=== PATIENT | male | born 1950 | race Caucasian/White ===

== ENCOUNTER 2017-08-16 15:58 | Inpatient (IN) ==
--- NOTE | 2017-08-16 16:32 | Emergency Department Note ---
Disposition Clinical Impression: Acalculous cholecystitis Disposition: Admitted As Inpatient Condition: Good Time of Disposition: 18:02 Abdominal Pain HPI - General Chief Complaint: ED Abdominal Pain Stated Complaint: admit for gallbladder sx Time Seen by Provider: 08/16/17 16:03 Source: patient Mode of arrival: ambulatory Limitations: no limitations Nursing Notes Reviewed: Yes Vital Signs Reviewed: Yes - History of Present Illness HPI Narrative: 67-year-old male history of atrial fibrillation on Eliquis presents to the emergency department as a transfer via EMS from the [place] for concern of bladder infection. Patient states he was going in for fasting labs he told them he has been experiencing abdominal pain for past 5 days. Sharp constant pain mostly in the right lower quadrant that radiates up to the right upper quadrant. Worse after certain meals in particular pizza and fried chicken. Denies any nausea or vomiting. States he has felt warm. Reports of some pain to the right shoulder, denies any injury. Denies chest pain or shortness of breath. Denies any urinary symptoms. Patient was sent here for possible surgery as the [facility] does not have that ability there. Review of his labs shows a total bilirubin 1.6 direct bilirubin 0.8, AST 41 ALT 34, creatinine .88 WBC 9.7 hemoglobin stable 13.[address] scan of the abdomen and pelvis shows a distended gallbladder with wall thickening and pericholecystectomy inflammatory changes consistent with acute cholecystitis, no evidence of radio dents gallstones however gallbladder is distended, free intraperitoneal fluid likely related to the gallbladder inflammation, tip of the appendix is mildly dilated but appendicitis cannot be excluded based on this appearance. Pt Subjective Complaint: abdominal pain - Related Data Home Medications Medication Instructions Recorded Confirmed Apixaban [Eliquis] 5 mg PO BID 08/16/17 08/16/17 Atorvastatin Calcium [Lipitor] 20 mg PO HS 08/16/17 08/16/17 Lisinopril [Zestril] 10 mg PO DAILY 08/16/17 08/16/17 Metoprolol [Lopressor] 75 mg PO BID 08/16/17 08/16/17 Multivitamin [One Daily 1 tab PO DAILY 08/16/17 08/16/17 Multivitamin] Sildenafil Citrate [Viagra] 100 mg PO DAILY 08/16/17 08/16/17 Allergies Allergy/AdvReac Type Severity Reaction Status Date / Time No Known Allergies Allergy Verified 08/16/17 18:00 All systems ED: reviewed and negative except as stated. Review of Systems: As Per HPI Constitutional: Reports: fever (Tactile). Denies: chills Cardiovascular: Denies: chest pain Respiratory: Denies: cough, dyspnea Gastrointestinal: Reports: abdominal pain. Denies: nausea, vomiting, diarrhea, melena, hematochezia Genitourinary: Denies: urgency, dysuria, hematuria Musculoskeletal: Denies: back pain, neck pain Integumentary: Denies: rash, abrasion Abdominal Pain PMH - Past Medical History Medical history: Reports: no medical history Physical Exam - General Limitations: no limitations General appearance: alert, in no apparent distress - Head Head exam: atraumatic, normocephalic, normal inspection - Eye Eye exam: Present: normal appearance, PERRL, EOMI. Absent: scleral icterus - ENT ENT exam: normal exam, normal oropharynx, mucous membranes moist - Neck Neck exam: Present: normal inspection, full ROM, trachea midline - Chest Chest inspection: Present: normal inspection, symmetric chest wall rise. Absent : tenderness - Respiratory Respiratory exam: Present: normal lung sounds bilaterally. Absent: respiratory distress, wheezes - Cardiovascular Cardiovascular exam: Present: regular rate, normal rhythm, normal heart sounds - Abdominal Exam Abdominal exam: Present: soft, tenderness, normal bowel sounds. Absent: distention, guarding, rebound, rigidity, Barrios's sign, Rovsing's sign Abdominal tenderness: Present: RUQ, RLQ - Extremities Exam Extremities exam: Present: normal inspection, full ROM, normal capillary refill. Absent: tenderness, pedal edema, calf tenderness - Back Exam Back exam: Present: normal inspection, full ROM. Absent: tenderness, CVA tenderness (R), CVA tenderness (L) - Neurological Exam Neurological exam: Present: alert, oriented X3 - Psychiatric Psychiatric exam: Present: normal affect, normal mood - Skin Skin exam: Present: warm, dry, intact, normal color. Absent: rash, cyanosis, diaphoresis Course Course Narrative: Patient presents with concern of acute cholecystitis [facility]. Labs and images performed there. The medical record was reviewed by myself. Findings are consistent with it. On examination patient is tender in the right lower right upper quadrant. Negative Barrios sign. His abdomen is soft. Pain appears well- controlled at this time. Will consult surgery for possible intervention. Patients in agreement with this plan. - Consultations Consultation #1: Spoke to Dr. Anderson surgeon computer salesperson retail recommends ultrasound they will come to evaluate the patient. Time: 16:51 Consultation #2: Patient is awaiting ultrasound of the gallbladder. Because he is on Eliquis for his atrial fibrillation, patient will be admitted to the hospital service for possible surgery and 48 hours. Spoke with on-call hospitalist ryland Sheridan to admit for acute cholecystitis. No further orders at this time Time: 17:56 Vital Signs Temperature 98.1 F 08/16/17 16:36 Pulse Rate 102 08/16/17 16:36 Respiratory Rate 18 08/16/17 16:36 Blood Pressure 155/81 08/16/17 16:36 O2 Sat by Pulse Oximetry 98 08/16/17 16:36 Temperature 99.9 F H 08/16/17 19:56 Pulse Rate 106 08/16/17 19:56 Respiratory Rate 14 08/16/17 19:56 Blood Pressure 176/98 08/16/17 19:56 O2 Sat by Pulse Oximetry 96 08/16/17 19:56 Oxygen Delivery Oxygen Delivery Room Air Abdominal Pain - MDM Narrative Medical decision making narrative: Patient was discussed with my attending physician who agrees with ED management and final disposition. They independently evaluated the patient. Please refer to their attestation to this encounter for additional information. This note was generated by [employer] voice recognition software and as a result grammatical or spelling errors may occur using this program. - Medical Records Medical records reviewed: Yes I reviewed the patient's medical records. Review of his labs shows a total bilirubin 1.6 direct bilirubin 0.8, AST 41 ALT 34, creatinine .88 WBC 9.7 hemoglobin stable 13.7 - Lab Data Lab results reviewed: Yes I reviewed the patient's lab results. - Radiology Data Radiology results reviewed: Yes I reviewed the patient's radiology results. Review of the CT scan of the abdomen and pelvis shows a distended gallbladder with wall thickening and pericholecystectomy inflammatory changes consistent with acute cholecystitis, no evidence of radio dents gallstones however gallbladder is distended, free intraperitoneal fluid likely related to the gallbladder inflammation, tip of the appendix is mildly dilated but appendicitis cannot be excluded based on this appearance. Gallbladder Ultrasound 08/16/17 16:51 IMPRESSION: Sludge filled gallbladder with thickened gallbladder wall. No sonographic Barrios sign or shadowing stones are seen. The findings are concerning for acalculous cholecystitis. If further imaging is warranted a HIDA scan could be pursued. D/ / Parminder Almanza MD / Parminder Almanza MD Interpreting Provider: Parminder Almanza MD Attestation Statement - Attestation Attestation: I, Luis Fernando Pride, examined this patient and my medical decision-making was reviewed with the DIRECTOR OF SCIENTIFIC RESEARCH/PA/Advanced Practice Nurse/Resident Physician. I agree with the documented findings, disposition and treatment plan as described except to the extent set forth below. 67-year-old male [facility] possible acute [facility]ole[facility]stit[facility]. Patient has CT which showed inflammation surrounding the gallbladder as well as the distal tip of the appendix. Patient states pain is in the right upper quadrant and radiates to his right shoulder blade. Worse with food intake. Patient had elevation of his bilirubin. Resident spoke with the surgeon who recommended admission to the hospitalist. Dr. Anderson reported to patient that gallbladder would likely be taken out on Saturday secondary to patient being Eliquis. Patient comfortable with this plan of action.
--- NOTE | 2017-08-16 17:24 | General Surgery Consult Note ---
Date of Encounter: 08/16/17 Time of Encounter: 17:20 Assessment and Plan (1) Acute cholecystitis Current Visit: Yes Status: Acute 67M with acute cholecystitis; CLD, non sweetened, non carbonated IVF hold eliquis, okay for dvt prophylaxis per primary team IV abx OR on 08/18 History of Present Illness Consult date: 08/16/17 Reason for consult: abdominal pain History of present illness: 67M h/o atrial fibrillation currently on eliquis (last dose was this morning), obesity who presents with 5 days of worsening abdominal pain localized to the Right side with radiation to right shoulder. No associated fevers, chills, but the patient does have PO intolerance. He states that his symptoms are worsened with chicken, pizza, and other fatty meals. Per his family he has had numerous episodes like this before, but this is the worst of it. He was transferred from the [place] for surgical evaluation. Of note, he did have a CT scan which demonstrated pericholecystic fluid as well as thickening of the gallbladder wall. His labs from the [place] show a total bilirubin 1.6. Past Med Surg Social Fam HX - Past Medical History Medical history: atrial fibrillation, cancer, hypertension Additional medical history: skin cancer Psychiatric history: no psych history - Past Surgical History Additional surgical history: skin cancer removal, hemorrhoids - Social History Smoking Status: Never smoker Smokeless Tobacco Status: No Alcohol use: none Drug use: none - Additional Family History Additional family history: non contributory Medications and Allergies 3 Allergy/AdvReac Type Severity Reaction Status Date / Time No Known Allergies Allergy Verified 08/16/17 16:49 Review of Systems All systems PM: The remainder of the systems were reviewed and are negative General Surgery Exam Initial Vital Signs Temp Pulse Resp BP Pulse Ox 98.1 F 102 18 155/81 98 08/16/17 16:36 08/16/17 16:36 08/16/17 16:36 08/16/17 16:36 08/16/17 16:36 - General physical appearance no distress - Eyes other (no scleral icterus) - ENT normocephalic - Neck no lymphadectomy - Respiratory normal expansion, normal respiratory effort - Cardiovascular Cardiovascular exam: Present: RRR - Abdomen Abdomen general surgery: Present: soft, tender Abdominal Tenderness: Present: RUQ ((-) pineda's sign) - Integumentary Integumentary general surgery: Present: warm and dry, no abnormal pigmentation - Neurologic Present: CN 2-12 grossly intact - Musculoskeletal Present: normal posture - Psychiatric Psychiatric general surgery: Present: A&Ox3 Exam Initial Vital Signs Temp Pulse Resp BP Pulse Ox 98.1 F 102 18 155/81 98 08/16/17 16:36 08/16/17 16:36 08/16/17 16:36 08/16/17 16:36 08/16/17 16:36 Results - Labs All other labs normal. Consult Discharge Plan - Plan [facility]errals[facility] [Primary Care Provider[facility] -
[2017-08-16] MEDS ORDERED: *HR* FentaNYL (PF) 100 MCG/2 ML VIAL IVP ONE (17:59)
[2017-08-16] MEDS ORDERED: Naloxone 0.4 MG/ML INJ IVP PRN (20:39)
--- NOTE | 2017-08-16 21:21 | Internal Med History&Physical ---
Date of Encounter: 08/16/17 Time of Encounter: 20:00 Internal Medicine - H&P: HPI Chief complaint: Abdominal pain Admitted From: Home Plans for Post Hospital Care: Home History of present illness: Mr. Crespo is a 67 year old male presented to the [facility] for abdominal pain. Past medical history is significant for A. fib on Eliquis, hypertension. Patient has right side abdominal pain for about 5 days. The pain is mainly on right upper quadrant. Pain getting worse after eating. Patient did feel chills and subjective fever. Patient has nausea but no vomiting. Patient denies diarrhea or urination symptoms. Patient denies chest pain but complained of some chest discomfort. Patient denies shortness of breath. CT abdomen shows acute cholecystitis, cannot rule out appendicitis. Patient was transferred to our hospital for surgical consult. Surgery saw patient already. Plan for surgery but the need to hold eliquis for 48 hours. Patient was admitted for further close monitoring. Past Med Surg Social Fam HX - Past Medical History Medical history: no medical history Additional medical history: skin cancer Psychiatric history: no psych history - Past Surgical History Additional surgical history: skin cancer removal, hemorrhoids - Social History Smoking Status: Never smoker Smokeless Tobacco Status: No Alcohol use: none Drug use: none - Family History Mother History Unknown: Yes Internal Medicine - H&P: Meds Apixaban [Eliquis] 5 mg PO BID 08/16/17 [History] Atorvastatin Calcium [Lipitor] 20 mg PO HS 08/16/17 [History] Lisinopril [Zestril] 10 mg PO DAILY 08/16/17 [History] Metoprolol [Lopressor] 75 mg PO BID 08/16/17 [History] Multivitamin [One Daily Multivitamin] 1 tab PO DAILY 08/16/17 [History] Sildenafil Citrate [Viagra] 100 mg PO DAILY 08/16/17 [History] 3 Allergy/AdvReac Type Severity Reaction Status Date / Time No Known Allergies Allergy Verified 08/16/17 18:00 All Systems PM: A 10-system review of systems was performed and is negative for pertinent findings except as documented above in the HPI. - Constitutional Vitals: Temp Pulse Resp BP Pulse Ox 99.9 F H 106 14 176/98 96 08/16/17 19:56 08/16/17 19:56 08/16/17 19:56 08/16/17 19:56 08/16/17 19:56 General appearance: Present: A&O X 3, no acute distress, answers questions appropriately - Head Head exam: Present: atraumatic, normocephalic - Eye Eye exam: Present: PERRL, conjuntiva pink, sclera anicteric Pupils: Present: PERRL - Neck Neck exam general surgery: Present: supple, trachea midline. Absent: lymphadenopathy - Respiratory Respiratory exam: Present: CTAB. Absent: accessory muscle use, rales, rhonchi, wheezes - Cardiovascular Cardiovascular exam: Present: RRR, +S1, +S2. Absent: diastolic murmur, gallop, rubs, systolic murmur - GI/Abdominal GI/Abdominal exam: Present: normal bowel sounds, soft, tenderness (Mild RUQ pain without or guarding or rebound. Morphis sign questionable positive), no peritoneal signs. Absent: distended - Extremities Exam Extremities exam: Present: warm, radial pulses palpable and symmetrical. Absent : calf tenderness, cyanotic, pedal edema - Neurological Exam Neurological exam: Present: CN II-XII intact, oriented X3, no focal deficits. Absent: pronater drift, facial droop, speech deficit - Skin Skin exam: Present: dry, intact - Assessment and plan (1) Acalculous cholecystitis Current Visit: Yes Status: Acute Assessment and plan: Per surgical consult, plan for surgery on Saturday. - Place patient on clear liquid diet, IV fluid - Cipro and Flagyl IV - Symptomatic control - Closely monitor patient (2) Hypertension Current Visit: Yes Status: Acute Assessment and plan: Continue home medications Qualifiers: Hypertension type: essential hypertension Qualified Code(s): I10 - Essential (primary) hypertension (3) Chest discomfort Current Visit: Yes Status: Acute Assessment and plan: Minimal symptoms. However, consider patient's age and history of hypertension and A. fib. We will check his EKG. - Continuous cardiac monitoring - Track 3 sets of troponin (4) A-fib Current Visit: Yes Status: Acute Assessment and plan: Continue beta deborah for rate control. Hold Eliquis at this point to prepare surgery Qualifiers: Atrial fibrillation type: chronic Qualified Code(s): I48.2 - Chronic atrial fibrillation (5) DVT prophylaxis Current Visit: Yes Status: Acute Assessment and plan: Heparin subcutaneously. EPCDs - Time Spent With Patient Total time spent is greater than 50% in coordination of care (as documented) at patient's floor/unit and/or counseling patient:
[2017-08-16] MEDS: D5% in 0.45% NACL 1,000 ML IVC SCH (22:12)
[2017-08-16] MEDS: Acetaminophen 325 MG TABLET PO PRN (22:24)
[2017-08-16] MEDS: MetroNIDAZOLE 500 MG/100 ML 500 MG/100 ML BAG IVPB SCH (23:18)
[2017-08-17 03:42] LABS: Basophils % 0.1 %; Eosinophils # 0.1 K/mcL (0.0-0.6); Eosinophils % 0.6 %; Hematocrit 39.4 % (37.5-50.1); Hemoglobin 13.2 g/dL (12.9-16.9); Immature Granulocytes % 0.4 % (0-4); Lymphocytes # 1.1 K/mcL (0.6-4.6); Lymphocytes % 11.8 %; Mean Corpuscular HGB Conc 33.5 g/dL (31.6-35.5); Mean Corpuscular Hemoglobin 28.4 pg (28.0-33.3); Mean Corpuscular Volume 84.7 fL (83.0-100.0); Mean Platelet Volume 9.9 fL (9.4-12.4); Monocytes % 10.8 %; Neutrophils # 6.8 K/mcL (1.6-8.9); Platelet Count 218 K/mcL (140-400); Red Blood Count 4.65 M/mcL (4.19-5.50); Red Cell Distribution Width 15.1 % (11.5-14.5); Segmented Neutrophils % 76.3 %
[2017-08-17 04:07] LABS: Alanine Aminotransferase 98 Units/L (7-52); Albumin 3.4 g/dL (3.5-5.7); Albumin/Globulin Ratio 1.3 (1.1-2.2); Alkaline Phosphatase 139 Units/L (34-104); Aspartate Amino Transferase 122 Units/L (13-39); BUN/Creatinine Ratio 16 (6-26); Bilirubin,Total 4.1 mg/dL (0.3-1.0); Blood Urea Nitrogen 14 mg/dL (8-23); Calcium 8.7 mg/dL (8.6-10.3); Carbon Dioxide 19 mEq/L (23-29); Chloride 104 mEq/L (98-107); Globulin 2.6 g/dL (2.4-3.5); Glucose 136 mg/dL (70-105); Osmolality,Calculated 285 (280-300); Potassium 3.4 mEq/L (3.5-5.1); Sodium 136 mEq/L (136-145); eGFR For African Americans > 60 (> 60); eGFR For Non-African Americans > 60 (> 60)
[2017-08-17] MEDS: *HR* Heparin 5,000 UNIT/ML VIAL SQ SCH ×2 (05:08→18:41)
[2017-08-17 10:10] LABS: Bilirubin,Direct 3.4 mg/dL (0.0-0.2)
[2017-08-17] MEDS: MetroNIDAZOLE 500 MG/100 ML 500 MG/100 ML BAG IVPB SCH ×2 (10:51→17:06)
[2017-08-17] MEDS: Multivit/Ca/Min/Fe/FA 1 TAB TABLET PO SCH (10:52)
[2017-08-17] MEDS: D5% in 0.45% NACL 1,000 ML IVC SCH (15:02)
--- NOTE | 2017-08-17 17:09 | Internal Med Progress Note ---
Date of Encounter: 08/17/17 Time of Encounter: 09:40 - Assessment and plan (1) Acalculous cholecystitis Current Visit: Yes Status: Acute Assessment and plan: Surgery on Saturday. Stop Eliquis prior to surgery. Continue clear liquid diet, IV fluids. Continue Cipro and Flagyl IV Continue pain management Patient had an MR today shows the findings are most compatible with acute cholecystitis, there is cholelithiasis and T1 hyperintense material within the gallbladder either sludge or contrast material. There is no biliary duct dilation or choledocholithiasis. Gallbladder Ultrasound 08/16/17 16:51 IMPRESSION: Sludge filled gallbladder with thickening of the gallbladder wall. No sonographic Barrios sign or shadowing stones are seen. The findings are concerning for acalculous cholecystitis. If further imaging is warranted, a HIDA scan could be pursued. D/ / 08/16/2017 19:17:07 Parminder Almanza MD / myah Interpreting Provider: Parminder Almanza MD Abdomen MRI 08/17/17 09:24 IMPRESSION: 1. Findings are most compatible with acute cholecystitis. There is cholelithiasis and T1 hyperintense material within the gallbladder either sludge or contrast material. 2. No biliary duct dilation or choledocholithiasis. The findings were sent to the Radiology Results Communication [facility] at 10:45 am on 08/17/2017to be communicated to a licensed caregiver. D/ / 08/17/2017 12:12:27 Autumn Bae MD / Mesha Leal Interpreting Provider: Autumn Bae MD (2) Hypertension Current Visit: Yes Status: Acute Assessment and plan: Continue home medications. Stable and well controlled. Qualifiers: Hypertension type: essential hypertension Qualified Code(s): I10 - Essential (primary) hypertension (3) Chest discomfort Current Visit: Yes Status: Acute Assessment and plan: Patient denies chest pain, shortness of breath, diaphoresis, nausea or vomiting this morning during exam. Continue telemetry Troponins negative 3. Continue to monitor. EKG this morning showed A. fib. (4) A-fib Current Visit: Yes Status: Chronic Assessment and plan: Continue beta deborah and Eliquis. Continue telemetry. Qualifiers: Atrial fibrillation type: chronic Qualified Code(s): I48.2 - Chronic atrial fibrillation (5) DVT prophylaxis Current Visit: Yes Status: Acute Assessment and plan: Heparin subcutaneously. EPCDs - Time Spent With Patient Total time spent is greater than 50% in coordination of care (as documented) at patient's floor/unit and/or counseling patient: less than 15 minutes - Subjective Interval history: Patient was seen and assessed at bedside at 9:40 AM. He denies any abdominal pain. He states is well controlled. When I saw him he was on his way to [facility]. He denied any needs. He denies nausea or vomiting, no chest pain or shortness of breath. He does have +1 nonpitting bilateral lower extremity that he says is normal since he was diagnosed with A. fib recently. - Constitutional Vitals: Temp Pulse Resp BP Pulse Ox 98.8 F 70 16 113/72 96 08/17/17 15:47 08/17/17 15:47 08/17/17 15:47 08/17/17 15:47 08/17/17 15:47 General appearance: Present: cooperative, A&O X 3, pleasant, no acute distress, answers questions appropriately - Head Head exam: Present: atraumatic, normal inspection, normocephalic - Eye Eye exam: Present: normal appearance, conjuntiva pink, sclera anicteric - Neck Neck exam general surgery: Present: supple, trachea midline. Absent: lymphadenopathy, tenderness - Respiratory Respiratory exam: Present: CTAB. Absent: accessory muscle use, chest wall tenderness, rales, rhonchi, wheezes - Cardiovascular Cardiovascular exam: Present: RRR, +S1, +S2. Absent: diastolic murmur, gallop, rubs, systolic murmur - GI/Abdominal GI/Abdominal exam: Present: normal bowel sounds, soft. Absent: distended, hepatomegaly, tenderness - Extremities Exam Extremities exam: Present: normal capillary refill, normal inspection, warm, radial pulses palpable and symmetrical. Absent: calf tenderness, cyanotic, pedal edema, tenderness - Neurological Exam Neurological exam: Present: alert, oriented X3, no focal deficits. Absent: facial droop, speech deficit - Skin Skin exam: Present: dry, intact, normal color, warm. Absent: rash Internal Medicine: Result - Labs CBC & Chem 7: 08/17/17 02:32 08/17/17 02:32 Labs: Short CBC 08/17/17 Range/Units 02:32 WBC 9.0 (4.3-11.1) K/mcL Hgb 13.2 (12.9-16.9) g/dL Hct 39.4 (37.5-50.1) % Plt Count 218 (140-400) K/mcL Neutrophils # 6.8 (1.6-8.9) K/mcL BMP 08/17/17 02:32 Sodium 136 Potassium 3.4 L Chloride 104 Carbon Dioxide 19 L BUN 14 Creatinine 0.85 Glucose 136 H Calcium 8.7 Cardiac Enzymes 08/16/17 08/17/17 08/17/17 Range/Units 21:09 02:32 08:56 Troponin I < 0.03 < 0.03 < 0.03 (< 0.04) ng/mL Liver Function 08/17/17 Range/Units 02:32 Total Bilirubin 4.1 H (0.3-1.0) mg/dL Direct Bilirubin 3.4 H (0.0-0.2) mg/dL AST 122 H (13-39) Units/L ALT 98 H (7-52) Units/L Alkaline Phosphatase 139 H (34-104) Units/L Albumin 3.4 L (3.5-5.7) g/dL - Impressions Impressions Abdomen MRI 08/17/17 09:24 IMPRESSION: 1. Findings are most compatible with acute cholecystitis. There is cholelithiasis and T1 hyperintense material within the gallbladder either sludge or contrast material. 2. No biliary duct dilation or choledocholithiasis. The findings were sent to the Radiology Results Communication Center at 10:45 am on 08/17/2017to be communicated to a licensed caregiver. D/ /17/2017 12:12:27 Autumn Bae MD / Mesha Leal Interpreting Provider: Autumn Bae MD - VTE Documentation of Mechanical Device: Intermittent pneumatic compression device Consult Discharge Plan - Plan [facility]errals: [facility] [Primary Care Provider] -
--- NOTE | 2017-08-17 22:41 | General Surgery Progress Note ---
Date of Encounter: 08/17/17 Time of Encounter: 13:00 - Assessment and Plan (1) Acute cholecystitis Current Visit: Yes Status: Acute 67M with acute cholecystitis; MRCP confirming no choledocholithiasis; T bili elevated, lipase elevated; likely passed gallstone NPO at midnight; IVF agustin dorina in AM Subjective Patient reports: no new complaints Objective Vital Signs - Last 8 Hours Temp Pulse Resp BP Pulse Ox 08/17/17 21:44 96 08/17/17 19:05 97.7 F 87 15 134/87 96 08/17/17 15:47 98.8 F 70 16 113/72 96 Intake and Output 08/17/17 08/17/17 08/17/17 07:59 15:59 23:59 Intake Total 300 / 300 1580 / 1580 100 / 100 Balance 300 / 300 1580 / 1580 100 / 100 Intake: IV Fluids 300 / 300 1100 / 1100 100 / 100 D5% And 0.45% Nacl 1000 Ml Bag 1000 / 1000 1,000 ML @ 80 mls/hr IVC . [id number] [facility] Rx#:[id number] Cipro Premix 400 MG/200 ML 400 200 / 200 mg In 200 ml @ 200 mls/hr IVPB Q12HR [facility] Rx#:[id number] Flagyl Premix 500 MG/100 ML 500 100 / 100 100 / 100 100 / 100 mg In 100 ml @ 100 mls/hr IVPB Q8HR [facility] Rx#:[id number] Oral 480 / 480 Other: Meal clears # Voids 1 - General physical appearance no distress - Respiratory normal expansion, normal respiratory effort - Cardiovascular Cardiovascular exam: Present: RRR - Abdomen Abdomen: Present: soft, non tender - Neurologic CN 2-12 grossly intact - Psychiatric oriented to time, oriented to person, oriented to place - Labs 08/17/17 02:32 08/17/17 02:32 Diabetes panel 08/17/17 Range/Units 02:32 Sodium 136 (136-145) mEq/L Potassium 3.4 L (3.5-5.1) mEq/L Chloride 104 (98-107) mEq/L Carbon Dioxide 19 L (23-29) mEq/L BUN 14 (8-23) mg/dL Creatinine 0.85 (0.70-1.30) mg/dL Glucose 136 H (70-105) mg/dL Calcium 8.7 (8.6-10.3) mg/dL AST 122 H (13-39) Units/L ALT 98 H (7-52) Units/L Alkaline Phosphatase 139 H (34-104) Units/L Albumin 3.4 L (3.5-5.7) g/dL Calcium panel 08/17/17 Range/Units 02:32 Calcium 8.7 (8.6-10.3) mg/dL Albumin 3.4 L (3.5-5.7) g/dL Pituitary panel 08/17/17 Range/Units 02:32 Sodium 136 (136-145) mEq/L Potassium 3.4 L (3.5-5.1) mEq/L Chloride 104 (98-107) mEq/L Carbon Dioxide 19 L (23-29) mEq/L BUN 14 (8-23) mg/dL Creatinine 0.85 (0.70-1.30) mg/dL Glucose 136 H (70-105) mg/dL Calcium 8.7 (8.6-10.3) mg/dL Adrenal panel 08/17/17 Range/Units 02:32 Sodium 136 (136-145) mEq/L Potassium 3.4 L (3.5-5.1) mEq/L Chloride 104 (98-107) mEq/L Carbon Dioxide 19 L (23-29) mEq/L BUN 14 (8-23) mg/dL Creatinine 0.85 (0.70-1.30) mg/dL Glucose 136 H (70-105) mg/dL Calcium 8.7 (8.6-10.3) mg/dL Total Bilirubin 4.1 H (0.3-1.0) mg/dL AST 122 H (13-39) Units/L ALT 98 H (7-52) Units/L Alkaline Phosphatase 139 H (34-104) Units/L Albumin 3.4 L (3.5-5.7) g/dL - VTE Documentation of Mechanical Device: Intermittent pneumatic compression device Consult Discharge Plan - Plan [facility] Care Provider[facility] -
[2017-08-18] MEDS: MetroNIDAZOLE 500 MG/100 ML 500 MG/100 ML BAG IVPB SCH ×3 (00:06→15:22)
[2017-08-18] MEDS: 0.9 % Sodium Chloride 1,000 ML IVC SCH ×3 (00:07→23:38)
[2017-08-18] MEDS: *HR* Heparin 5,000 UNIT/ML VIAL SQ SCH ×2 (05:33→21:13)
[2017-08-18] MEDS: Multivit/Ca/Min/Fe/FA 1 TAB TABLET PO SCH (07:37)
[2017-08-18 08:02] LABS: Basophils % 0.2 %; Eosinophils # 0.2 K/mcL (0.0-0.6); Eosinophils % 2.9 %; Hematocrit 40.8 % (37.5-50.1); Hemoglobin 13.7 g/dL (12.9-16.9); Immature Granulocytes % 0.6 % (0-4); Lymphocytes # 1.2 K/mcL (0.6-4.6); Lymphocytes % 21.3 %; Mean Corpuscular HGB Conc 33.6 g/dL (31.6-35.5); Mean Corpuscular Hemoglobin 28.4 pg (28.0-33.3); Mean Corpuscular Volume 84.6 fL (83.0-100.0); Mean Platelet Volume 9.7 fL (9.4-12.4); Monocytes # 0.5 K/mcL (0.0-1.3); Monocytes % 9.4 %; Neutrophils # 3.6 K/mcL (1.6-8.9); Platelet Count 259 K/mcL (140-400); Red Blood Count 4.82 M/mcL (4.19-5.50); Red Cell Distribution Width 15.3 % (11.5-14.5); Segmented Neutrophils % 65.6 %
[2017-08-18 08:29] LABS: BUN/Creatinine Ratio 11 (6-26); Blood Urea Nitrogen 8 mg/dL (8-23); Calcium 8.6 mg/dL (8.6-10.3); Carbon Dioxide 27 mEq/L (23-29); Chloride 109 mEq/L (98-107); Glucose 124 mg/dL (70-105); Osmolality,Calculated 292 (280-300); Potassium 3.6 mEq/L (3.5-5.1); Sodium 141 mEq/L (136-145); eGFR For African Americans > 60 (> 60); eGFR For Non-African Americans > 60 (> 60)
[2017-08-18] MEDS ORDERED: *HR* Propofol 200 MG/20 ML VIAL IVP ONE (10:04)
[2017-08-18] MEDS ORDERED: Lidocaine -MPF 4% 5 ML AMPUL ONE (10:04)
[2017-08-18] MEDS ORDERED: *HR* Midazolam HCl 2 MG/2 ML VIAL ONE (10:04)
[2017-08-18] MEDS ORDERED: Ketorolac 30 MG/ML VIAL ONE (10:04)
[2017-08-18] MEDS ORDERED: Lidocaine -MPF 2% 2 ML VIAL ONE (10:04)
[2017-08-18] MEDS ORDERED: Dexamethasone 4 MG/ML VIAL ONE (10:04)
[2017-08-18] MEDS ORDERED: Ondansetron 4 MG/2 ML VIAL ONE (10:04)
[2017-08-18] MEDS ORDERED: *HR* FentaNYL (PF) 100 MCG/2 ML VIAL ONE (10:04)
[2017-08-18] MEDS ORDERED: Neostigmine Methylsulfate 3 MG/3 ML SYRINGE ONE (10:04)
[2017-08-18] MEDS ORDERED: *HR* Rocuronium Bromide 50 MG/5 ML VIAL ONE (10:04)
[2017-08-18] MEDS ORDERED: *HR* Succinylcholine 200 MG/10 ML VIAL IVP ONE (10:04)
[2017-08-18] MEDS: Acetaminophen 325 MG TABLET PO PRN (11:24)
--- NOTE | 2017-08-18 12:49 | Anesthesia Evaluation PreOp ---
Date of Encounter: 08/18/17 Time of Encounter: 12:47 - Past History Planned Operation: Robotic Laparoscopic Cholecystectomy Cardiac History: HTN, Hyperlipidemia, Arrhythmia (A-Fib) Pulmonary History: Denies Any Significant HX, Snore CONSTRUCTION CONSULTANT History: Denies Any Significant HX Other Medical History: Denies Any Significant HX Anesthesia History: No Prior Anesthetic Complications, Past Anesthesia Alcohol Use: rarely Drug use: none Medications and Allergies Apixaban [Eliquis] 5 mg PO BID 08/16/17 [History] Atorvastatin Calcium [Lipitor] 20 mg PO HS 08/16/17 [History] Lisinopril [Zestril] 10 mg PO DAILY 08/16/17 [History] Metoprolol [Lopressor] 75 mg PO BID 08/16/17 [History] Multivitamin [One Daily Multivitamin] 1 tab PO DAILY 08/16/17 [History] Sildenafil Citrate [Viagra] 100 mg PO DAILY 08/16/17 [History] 3 Allergy/AdvReac Type Severity Reaction Status Date / Time No Known Allergies Allergy Verified 08/16/17 18:00 - Meds/Allergy Pre-op Review Medications Reviewed: Yes Allergies Reviewed: Yes Beta Blockers on Current Med List: Yes If Beta Blockers taken, Date/Time (Last Dose taken): 08/18/2017 at 0737 Anesthesia Results - Labs 08/18/17 07:43 08/18/17 07:43 Anesthesia Exam Vital Signs/O2 Sat, Most Current Temp Pulse Resp BP Pulse Ox 98.8 F 81 18 135/87 97 08/18/17 11:18 08/18/17 11:18 08/18/17 11:18 08/18/17 11:18 08/18/17 11:18 Height: 5'11''/1.8m Weight: 242 lbs/110 kg NPO (# of Hours): 8 Pain Scale: 0 Pain Scale Used: Numeric (1 - 10) - HEENT Pupil (Motor): EOMI Mallampati: III Teeth: Normal Oral Opening: Greater than 3 - CONSTRUCTION CONSULTANT LOC: Oriented CONSTRUCTION CONSULTANT Motor: Normal RUE, Normal LUE, Normal RLE, Normal LLE, Normal Face CONSTRUCTION CONSULTANT Sensory: Normal: RUE, LUE, RLE, LLE, Face - Cardiac Rhythm: Irregular Murmur: None - Pulmonary Breath Sounds: bilateral Clear Respiratory Effort: Symmetrical Anesthesia Assess/Plan ASA Score: 3 Modified Eugenio Scale for Level of Consciousness: Cooperative, oriented, and tranquil Anesthetic Plan: General Monitoring Plan: Standard Monitors Recovery Plan: PACU
[2017-08-18] MEDS ORDERED: *HR* Labetalol 20 MG/4 ML SYRINGE IVP PRN (13:01)
[2017-08-18] MEDS ORDERED: *HR* Promethazine 25 MG/ML VIAL IVP PRN (13:01)
[2017-08-18] MEDS ORDERED: Dexamethasone 4 MG/ML VIAL IVP ONE (13:01)
[2017-08-18] MEDS ORDERED: Ondansetron 4 MG/2 ML VIAL IVP ONE (13:01)
--- NOTE | 2017-08-18 14:05 | General Surgery Progress Note ---
Date of Encounter: 08/18/17 Time of Encounter: 14:04 - Assessment and Plan (1) Acute cholecystitis Current Visit: Yes Status: Acute 67M with acute cholecystitis; MRCP confirming no choledocholithiasis; T bili elevated, lipase elevated; likely passed gallstone OR today Subjective Patient reports: no new complaints Objective Vital Signs - Last 8 Hours Temp Pulse Resp BP Pulse Ox 08/18/17 11:18 98.8 F 81 18 135/87 97 08/18/17 07:47 97.9 F 92 18 162/82 97 Intake and Output 08/17/17 08/18/17 08/18/17 23:59 07:59 15:59 Intake Total 780 / 780 100 / 100 1300 / 1300 Output Total 300 / 300 Balance 780 / 780 -200 / -200 1300 / 1300 Intake: IV Fluids 300 / 300 100 / 100 1300 / 1300 0.9 % Sodium Chloride 1,000 ML 1000 / 1000 @ 125 mls/hr IVC .Q8H [facility] Rx#: [id number] Cipro Premix 400 MG/200 ML 400 200 / 200 200 / 200 mg In 200 ml @ 200 mls/hr IVPB Q12HR [facility] Rx#:[id number] Flagyl Premix 500 MG/100 ML 500 100 / 100 100 / 100 100 / 100 mg In 100 ml @ 100 mls/hr IVPB Q8HR [facility] Rx#:[id number] Oral 480 / 480 Output: Urine 300 / 300 Other: # Voids 1 Weight 110 kg Patient Weight 08/18/17 23:59 Weight 110 kg - General physical appearance no distress - Respiratory normal expansion, normal respiratory effort - Cardiovascular Cardiovascular exam: Present: RRR - Abdomen Abdomen: Present: soft, non tender - Neurologic CN 2-12 grossly intact - Musculoskeletal normal posture - Psychiatric oriented to time, oriented to person, oriented to place - Labs 08/18/17 07:43 08/18/17 07:43 Diabetes panel 08/18/17 Range/Units 07:43 Sodium 141 (136-145) mEq/L Potassium 3.6 (3.5-5.1) mEq/L Chloride 109 H (98-107) mEq/L Carbon Dioxide 27 (23-29) mEq/L BUN 8 (8-23) mg/dL Creatinine 0.73 (0.70-1.30) mg/dL Glucose 124 H (70-105) mg/dL Calcium 8.6 (8.6-10.3) mg/dL Calcium panel 08/18/17 Range/Units 07:43 Calcium 8.6 (8.6-10.3) mg/dL Pituitary panel 08/18/17 Range/Units 07:43 Sodium 141 (136-145) mEq/L Potassium 3.6 (3.5-5.1) mEq/L Chloride 109 H (98-107) mEq/L Carbon Dioxide 27 (23-29) mEq/L BUN 8 (8-23) mg/dL Creatinine 0.73 (0.70-1.30) mg/dL Glucose 124 H (70-105) mg/dL Calcium 8.6 (8.6-10.3) mg/dL Adrenal panel 08/18/17 Range/Units 07:43 Sodium 141 (136-145) mEq/L Potassium 3.6 (3.5-5.1) mEq/L Chloride 109 H (98-107) mEq/L Carbon Dioxide 27 (23-29) mEq/L BUN 8 (8-23) mg/dL Creatinine 0.73 (0.70-1.30) mg/dL Glucose 124 H (70-105) mg/dL Calcium 8.6 (8.6-10.3) mg/dL - VTE Documentation of Mechanical Device: Intermittent pneumatic compression device Consult Discharge Plan - Plan [facility]errals: [facility] [Primary Care Provider[facility] -
--- NOTE | 2017-08-18 15:26 | Internal Med Progress Note ---
Date of Encounter: 08/18/17 Time of Encounter: 09:10 - Assessment and plan (1) Acalculous cholecystitis Current Visit: Yes Status: Acute Assessment and plan: Surgery today. Continue clear liquid diet, IV fluids when pt able to tolerate po intake Continue pain management Patient had an MR today shows the findings are most compatible with acute cholecystitis, there is cholelithiasis and T1 hyperintense material within the gallbladder either sludge or contrast material. There is no biliary duct dilation or choledocholithiasis. Gallbladder Ultrasound 08/16/17 16:51 IMPRESSION: Sludge filled gallbladder with thickening of the gallbladder wall. No sonographic Barrios sign or shadowing stones are seen. The findings are concerning for acalculous cholecystitis. If further imaging is warranted, a HIDA scan could be pursued. D/ / 08/16/2017 19:17:07 Parminder Almanza MD / myah Interpreting Provider: Parminder Almanza MD Abdomen MRI 08/17/17 09:24 IMPRESSION: 1. Findings are most compatible with acute cholecystitis. There is cholelithiasis and T1 hyperintense material within the gallbladder either sludge or contrast material. 2. No biliary duct dilation or choledocholithiasis. The findings were sent to the [facility]iology [facility] at 10:45 am on 08/17/2017to be communicated to a licensed caregiver. D/ /17/2017 12:12:27 Autumn Bae MD / Mesha Leal Interpreting Provider: Autumn Bae MD (2) Hypertension Current Visit: Yes Status: Acute Assessment and plan: Continue home medications. Stable and well controlled. Qualifiers: Hypertension type: essential hypertension Qualified Code(s): I10 - Essential (primary) hypertension (3) Chest discomfort Current Visit: Yes Status: Acute Assessment and plan: Patient denies chest pain, shortness of breath, diaphoresis, nausea or vomiting this morning. Continue telemetry Troponins negative 3. Continue to monitor. EKG and monitor showed A. fib. (4) A-fib Current Visit: Yes Status: Chronic Assessment and plan: Continue beta deborah and Eliquis. Restart Eliquis post op. Continue telemetry. Qualifiers: Atrial fibrillation type: chronic Qualified Code(s): I48.2 - Chronic atrial fibrillation (5) DVT prophylaxis Current Visit: Yes Status: Acute Assessment and plan: Heparin subcutaneously. EPCDs - Time Spent With Patient Total time spent is greater than 50% in coordination of care (as documented) at patient's floor/unit and/or counseling patient: less than 15 minutes - Subjective Interval history: Patient was seen and assessed at bedside at 9:10 AM. Daughter at bedside, all questions answered. He denies any abdominal pain. He is tolerating clear liquid diet prior to NPO status for surgery. He denies nausea or vomiting, no chest pain or shortness of breath. He does have +1 nonpitting bilateral lower extremity that he says is normal since he was diagnosed with A. fib recently. - Constitutional Vitals: Temp Pulse Resp BP Pulse Ox 98.8 F 81 18 135/87 97 08/18/17 11:18 08/18/17 11:18 08/18/17 11:18 08/18/17 11:18 08/18/17 11:18 General appearance: Present: cooperative, A&O X 3, pleasant, no acute distress, answers questions appropriately - Head Head exam: Present: atraumatic, normal inspection, normocephalic - Eye Eye exam: Present: normal appearance, conjuntiva pink, sclera anicteric - Neck Neck exam general surgery: Present: supple, trachea midline. Absent: lymphadenopathy, tenderness - Respiratory Respiratory exam: Present: CTAB. Absent: accessory muscle use, rales, rhonchi, wheezes - Cardiovascular Cardiovascular exam: Present: RRR, +S1, +S2. Absent: diastolic murmur, gallop, rubs, systolic murmur - GI/Abdominal GI/Abdominal exam: Present: normal bowel sounds, soft. Absent: distended, hepatomegaly, tenderness - Extremities Exam Extremities exam: Present: normal capillary refill, normal inspection, warm, radial pulses palpable and symmetrical. Absent: calf tenderness, cyanotic, pedal edema, tenderness - Neurological Exam Neurological exam: Present: alert, oriented X3, no focal deficits. Absent: facial droop, speech deficit - Skin Skin exam: Present: dry, intact, normal color, warm. Absent: rash Internal Medicine: Result - Labs CBC & Chem 7: 08/18/17 07:43 08/18/17 07:43 Labs: Short CBC 08/18/17 Range/Units 07:43 WBC 5.4 (4.3-11.1) K/mcL Hgb 13.7 (12.9-16.9) g/dL Hct 40.8 (37.5-50.1) % Plt Count 259 (140-400) K/mcL Neutrophils # 3.6 (1.6-8.9) K/mcL BMP 08/18/17 07:43 Sodium 141 Potassium 3.6 Chloride 109 H Carbon Dioxide 27 BUN 8 Creatinine 0.73 Glucose 124 H Calcium 8.6 - VTE Documentation of Mechanical Device: Intermittent pneumatic compression device Consult Discharge Plan - Plan [facility]: [facility] [Primary Care Provider] -
[2017-08-18] MEDS ORDERED: *HR* Metoprolol 5 MG/5 ML VIAL IVP ONE (19:24)
[2017-08-18] MEDS ORDERED: *HR* OxyCODONE Immed Rel 5 MG TABLET PO PRN (19:41)
[2017-08-18] MEDS: *HR* HYDROmorphone (PF) 1 MG/ML SYRINGE IVP PRN ×4 (20:10→20:35)
[2017-08-18] MEDS ORDERED: Acetaminophen IV 1,000 MG/100 ML INFUS..BTL IVPB ONE (20:22)
--- NOTE | 2017-08-18 20:25 | Operative Note ---
Date of procedure: 08/18/17 Pre-op diagnosis: acute cholecystitis Post-op diagnosis: same Procedure: robotic cholecystectomy with ICG intraoperative cholangiogram Implants: none Complications: none Anesthesia: GETA Local Anesthetics: 0.5% Sensorcaine HCL SubQ (cc) Surgeon: Nader Anderson Was there an assistant analyst present: Yes [employer] Worker: Bonita Llamas Estimated blood loss (cc): 10 Specimen: gallbladder and contents Condition: stable Disposition: PACU Procedure in Detail: The patient was brought into the operating room suite and was placed in the supine position. Mechanical DVT prophylaxis was applied. A time-in was conducted. The patient underwent smooth induction of anesthesia. Preoperative antibiotics were given. The patient was prepped and draped in the usual fashion. A time-out was held identifying the correct patient, pathology, and procedure. Everyone was in agreement and we began the procedure. 2cc of ICG were injected prior to starting Incision to Dissection I started by creating a 12mm supraumbilical incision. Via open Yash technique I did enter into the abdomen. I inserted the 12mm trocar followed by the 30 degree camera, ensured that I did not cause intraabdominal injury upon entry, and quickly identified the gallbladder. I created a 5mm incisions one handbreadth to the left and right of the umbilical incision and an assistant analyst port along the R anterior axillary line. I then docked the robot in the usual fashion. Using laparoscopic graspers I managed to elevate the gallbladder above the liver. At the Console I grasp the edge of the gallbladder to retract laterally. Using the [place] instrument as well as the hook-electrocautery, I dissected out the cystic duct and the cystic artery. I excised the posterior tissue to visualize the liver. I was able to clearly visualize the critical view of safety. I utilized the firefly function to distinguish between the cystic duct and the common bile duct , thereby serving as a cholangiogram Critical view of Safety to Excison of the gallbladder I then clipped both structures using plastic clips, two on the stay side, one on the specimen side. Using robotic scissors, I cut between the clip on the specimen side and the first clip on the stay side. Then using tension and counter-tension, I used the electrocautery to excise the gallbladder off of the liver bed. Before complete excision, I evaluated the liver bed to ensure there 1.) there was no bleeding, 2. No excessive bile leakage, and 3.) to evaluate my clips. There was no bleeding, bile leakage, and the clips were all the way across both duct and artery. Removal of gallbladder to Closure After undocking the robot, I inserted the endocatch bag into the umbilical port. I placed the specimen into the bag and retrieved it through the umbilical port. i then irrgiated the liver bed and above the liver before suctioning both irrigation fluid and air. I removed the 5mm ports, turned off the insufllation, then removed the 12mm umbilical port. I then close the umbilical fascia a vicryl suture in a figure of 8 fashion. All incisions were closed with interrupted 4-0 monocryl and sealed with dermabond. The patient tolerated the procedure well and went back to PACU in stable condition.
--- NOTE | 2017-08-18 21:01 | Anesthesia Evaluation Post Op ---
Date of Encounter: 08/18/17 Time of Encounter: 21:01 - Vital Signs Vital Signs: Last Vital Signs Temp 97.8 F 08/18/17 20:35 Pulse 90 08/18/17 20:45 Resp 16 08/18/17 20:45 BP 155/97 08/18/17 20:45 Pulse Ox 96 08/18/17 20:45 - Lungs Lungs: Clear Ascult./Percussion - Airway Airway: Non-obstructed - Cardiovascular Irregular Rate, Baseline Rhythm - Mental Status Mental Status: Alert & Oriented, Answers Appropriately - Pain Pain Scale: 4 - Nausea Vomiting Nausea Vomiting: Not Present - Hydration Hydration: Ice chips - Discharge PostOp Status: Transfer Patient to floor
[2017-08-18] MEDS ORDERED: Acetaminophen 325 MG TABLET PO PRN (22:32)
[2017-08-18] MEDS: *HR* OxyCODONE Immed Rel 5 MG TABLET PO PRN (23:42)
[2017-08-19] MEDS ORDERED: MetroNIDAZOLE 500 MG/100 ML 500 MG/100 ML BAG IVPB SCH
[2017-08-19] MEDS: 0.9 % Sodium Chloride 1,000 ML IVC SCH ×2 (02:49→09:28)
[2017-08-19] MEDS: *HR* OxyCODONE Immed Rel 5 MG TABLET PO PRN (05:51)
[2017-08-19] MEDS ORDERED: *HR* Heparin 5,000 UNIT/ML VIAL SQ SCH (06:00)
--- NOTE | 2017-08-19 08:03 | General Surgery Progress Note ---
Date of Encounter: 08/19/17 Time of Encounter: 08:00 - Assessment and Plan (1) Acute cholecystitis Current Visit: Yes Status: Acute POD #1 robotic cholecystectomy with ICG intraoperative cholagiogram Patient tolerated procedure well Advance to regular diet as tolerated DC today with 2 week f/u incision care Patient okay for discharge today from surgery stand point. Subjective Patient reports: feels better, pain is less, flatus, no bowel movement Objective Vital Signs - Last 8 Hours Temp Pulse Resp BP Pulse Ox 08/19/17 07:10 98 F 103 16 165/80 97 08/19/17 03:09 98.0 F 92 14 144/79 99 Intake and Output 08/18/17 08/18/17 08/19/17 15:59 23:59 07:59 Intake Total 1300 / 1300 400 / 400 Output Total 250 / 250 Balance 1300 / 1300 390 / 390 -250 / -250 Intake: IV Fluids 1300 / 1300 400 / 400 0.9 % Sodium Chloride 1,000 ML 1000 / 1000 @ 125 mls/hr IVC .Q8H [facility] Rx#: [id number] Ofirmev 1,000 mg/100 ml 1,000 100 / 100 mg In 100 ml @ 400 mls/hr IVPB ONCE ONE Rx#:[id number] Cipro Premix 400 MG/200 ML 400 200 / 200 200 / 200 mg In 200 ml @ 200 mls/hr IVPB Q12HR [facility] Rx#:[id number] Flagyl Premix 500 MG/100 ML 500 100 / 100 100 / 100 mg In 100 ml @ 100 mls/hr IVPB Q8HR [facility] Rx#:[id number] Output: Urine 250 / 250 Estimated Blood Loss Other: Weight 116 kg Patient Weight 08/19/17 23:59 Weight 116 kg - General physical appearance well developed, no distress - Eyes normal ocular movement - Respiratory normal expansion, normal respiratory effort, clear to auscultation - Cardiovascular Cardiovascular exam: Present: RRR, no murmurs/rubs/gallops - Abdomen Abdomen: Present: bowel sounds present, soft, non tender, surgical scars (non erythematous, well maintained, mild tenderness) - Incision Incision: Present: clean and dry. Absent: draining, red, swollen, purulent - Musculoskeletal normal posture - Labs 08/18/17 07:43 08/18/17 07:43 Diabetes panel 08/18/17 Range/Units 07:43 Sodium 141 (136-145) mEq/L Potassium 3.6 (3.5-5.1) mEq/L Chloride 109 H (98-107) mEq/L Carbon Dioxide 27 (23-29) mEq/L BUN 8 (8-23) mg/dL Creatinine 0.73 (0.70-1.30) mg/dL Glucose 124 H (70-105) mg/dL Calcium 8.6 (8.6-10.3) mg/dL Calcium panel 08/18/17 Range/Units 07:43 Calcium 8.6 (8.6-10.3) mg/dL Pituitary panel 08/18/17 Range/Units 07:43 Sodium 141 (136-145) mEq/L Potassium 3.6 (3.5-5.1) mEq/L Chloride 109 H (98-107) mEq/L Carbon Dioxide 27 (23-29) mEq/L BUN 8 (8-23) mg/dL Creatinine 0.73 (0.70-1.30) mg/dL Glucose 124 H (70-105) mg/dL Calcium 8.6 (8.6-10.3) mg/dL Adrenal panel 08/18/17 Range/Units 07:43 Sodium 141 (136-145) mEq/L Potassium 3.6 (3.5-5.1) mEq/L Chloride 109 H (98-107) mEq/L Carbon Dioxide 27 (23-29) mEq/L BUN 8 (8-23) mg/dL Creatinine 0.73 (0.70-1.30) mg/dL Glucose 124 H (70-105) mg/dL Calcium 8.6 (8.6-10.3) mg/dL - VTE Documentation of Mechanical Device: Intermittent pneumatic compression device Consult Discharge Plan - Plan Instructions: Oxycodone/Aspirin (By mouth), Ibuprofen (By mouth), Laxative, Stool Softeners (By mouth), Ondansetron (By mouth) Additional Instructions: - No pushing, pulling, or lifting greater than 15 lbs for 2 weeks - You may shower beginning today, but no baths soaking or swimming for 2 weeks - You may resume driving when you are off narcotics and are safe to react in a car - Take ibuprofen every 8 hours for discomfort. if this does not relieve your discomfit, you may take the as needed Percocet. Take narcotics as directed. Do not take more narcotics than directed and do not share your narcotics with any other person. Do not drink alcohol while on narcotics. - Take stool softener (Colace) or a water based laxative ( Miralax) while taking narcotics - Report any fevers greater than 100.5 degrees F, increased abdominal discomfort , drainage that looks like puss, increased redness or pain at the surgical site , or any vomiting. - Report any pain in the calves, shortness of breath, or rapid heart beat. follow in two weeks at clinic with Caprice Sethi CNP 09/03/2017 at 1:45 pm Medications: -oxycodone/acetaminpohen 5/325 mg 1 tab Q6 hours PRN for breakthrough pain #28 - ibuprofen 800 mg PO Q8 hours #42 - Colace 100 mg BID (take while on narcotics; may hole for loose stool) #30 -Zofran ODT 4 mg Q6 hours PRN for nausea #15 [facility]: [facility] [Primary Care Provider[facility] - Caprice Sethi CNP [Advanced Practice Nurse] - 09/03/17 1:45 pm Prescriptions: Oxycodone HCl/Acetaminophen [Percocet 5-325 mg Tablet] 1 tab PO Q6HR PRN 7 Days #28 tablet PRN Reason: Wound Healing Ibuprofen 800 mg PO Q8HR 14 Days #42 tablet Ondansetron HCl [Zofran] 4 mg PO Q8HR PRN #15 tab PRN Reason: Nausea Docusate Sodium [Colace] 100 mg PO BID PRN 7 Days #30 capsule PRN Reason: take with narcotics
[2017-08-19] MEDS ORDERED: Multivit/Ca/Min/Fe/FA 1 TAB TABLET PO SCH (09:00)
[2017-08-19 09:40] LABS: Basophils % 0.1 %; Hematocrit 42.1 % (37.5-50.1); Hemoglobin 13.8 g/dL (12.9-16.9); Immature Granulocytes % 0.5 % (0-4); Lymphocytes # 0.8 K/mcL (0.6-4.6); Lymphocytes % 8.3 %; Mean Corpuscular HGB Conc 32.8 g/dL (31.6-35.5); Mean Corpuscular Hemoglobin 27.9 pg (28.0-33.3); Mean Corpuscular Volume 85.1 fL (83.0-100.0); Mean Platelet Volume 9.6 fL (9.4-12.4); Monocytes # 0.6 K/mcL (0.0-1.3); Monocytes % 6.7 %; Platelet Count 297 K/mcL (140-400); Red Blood Count 4.95 M/mcL (4.19-5.50); Segmented Neutrophils % 84.4 %
[2017-08-19 09:50] LABS: BUN/Creatinine Ratio 18 (6-26); Blood Urea Nitrogen 13 mg/dL (8-23); Calcium 8.4 mg/dL (8.6-10.3); Carbon Dioxide 24 mEq/L (23-29); Chloride 107 mEq/L (98-107); Glucose 135 mg/dL (70-105); Osmolality,Calculated 284 (280-300); Potassium 3.8 mEq/L (3.5-5.1); Sodium 136 mEq/L (136-145); eGFR For African Americans > 60 (> 60); eGFR For Non-African Americans > 60 (> 60)
[2017-08-19 11:07] VITALS: BP 152/76
--- NOTE | 2017-08-19 11:43 | Discharge Summary ---
Orders not resulted at time of discharge: Pending orders 08/18/17 19:35 Surgical Pathology [PTH] Routine Date of Encounter: 08/19/17 Time of Encounter: 10:20 - Discharge Diagnosis (1) Acalculous cholecystitis Priority: Primary Status: Acute Assessment and Plan: POD 1 s/p robotic cholecystectomy. Pt is tolerating food and fluid. He is pain free and doing well. Ready for discharge, surgery has signed off. (2) Hypertension Priority: Secondary Status: Acute Assessment and Plan: Continue home medications. Chronic. Qualifiers: Hypertension type: essential hypertension Qualified Code(s): I10 - Essential (primary) hypertension (3) Chest discomfort Priority: Secondary Status: Acute Assessment and Plan: Patient denies chest pain, shortness of breath, diaphoresis, nausea or vomiting this morning. Troponins negative 3. EKG and monitor showed A. fib which is chronic. Continue BB and Eliquis. (4) A-fib Priority: Secondary Status: Chronic Assessment and Plan: Continue BB and Eliquis. Qualifiers: Atrial fibrillation type: chronic Qualified Code(s): I48.2 - Chronic atrial fibrillation (5) DVT prophylaxis Priority: Secondary Status: Acute Assessment and Plan: Heparin subcutaneously. EPCDs Pt will continue Eliquis after discharge. Hospital course: Mr. Crespo is a 67 year old male with past medical history of A. fib, hyperlipidemia, hypertension. Patient presented with abdominal pain, found to have acalculous cholecystitis. Patient had robotic cholecystectomy 08/18/17. Tolerated procedure well. Patient discharged with follow-up with primary care. Discharge discussed with: patient, family - Time Spent with Patient Total time spent providing and/or coordinating discharge services: Less than 30 minutes - Discharge Medications Prescriptions: Oxycodone HCl/Acetaminophen [Percocet 5-325 mg Tablet] 1 tab PO Q6HR PRN 7 Days #28 tablet PRN Reason: Wound Healing Ibuprofen 800 mg PO Q8HR 14 Days #42 tablet Ondansetron HCl [Zofran] 4 mg PO Q8HR PRN #15 tab PRN Reason: Nausea Docusate Sodium [Colace] 100 mg PO BID PRN 7 Days #30 capsule PRN Reason: take with narcotics Home Medications: Apixaban [Eliquis] 5 mg PO BID 08/16/17 [History] Atorvastatin Calcium [Lipitor] 20 mg PO HS 08/16/17 [History] Lisinopril [Zestril] 10 mg PO DAILY 08/16/17 [History] Metoprolol [Lopressor] 75 mg PO BID 08/16/17 [History] Multivitamin [One Daily Multivitamin] 1 tab PO DAILY 08/16/17 [History] Sildenafil Citrate [Viagra] 100 mg PO DAILY 08/16/17 [History] Docusate Sodium [Colace] 100 mg PO BID PRN 7 Days #30 capsule 08/19/17 [Rx] Ibuprofen 800 mg PO Q8HR 14 Days #42 tablet 08/19/17 [Rx] Ondansetron HCl [Zofran] 4 mg PO Q8HR PRN #15 tab 08/19/17 [Rx] Oxycodone HCl/Acetaminophen [Percocet 5-325 mg Tablet] 1 tab PO Q6HR PRN 7 Days #28 tablet 08/19/17 [Rx] Allergies/Adverse Reactions: 3 Allergy/AdvReac Type Severity Reaction Status Date / Time No Known Allergies Allergy Verified 08/19/17 11:50 Date of admission: 08/16/17 20:39 [facility] care [facility]: [facility] Discharging clinician: Ericka Barakat Anticipated date of discharge: 08/19/17 - Constitutional Vitals: Temp Pulse Resp BP Pulse Ox 97.4 F L 89 16 152/76 95 08/19/17 10:57 08/19/17 10:57 08/19/17 10:57 08/19/17 10:57 08/19/17 10:57 General appearance: Present: cooperative, A&O X 3, pleasant, no acute distress, answers questions appropriately - Head Head exam: Present: atraumatic, normal inspection, normocephalic - Eye Eye exam: Present: conjuntiva pink, sclera anicteric - Neck Neck exam general surgery: Present: normal inspection, supple, trachea midline. Absent: lymphadenopathy, tenderness - Respiratory Respiratory exam: Present: CTAB. Absent: accessory muscle use, rales, respiratory distress, rhonchi, wheezes - Cardiovascular Cardiovascular exam: Present: RRR, +S1, +S2. Absent: diastolic murmur, gallop, rubs, systolic murmur - GI/Abdominal GI/Abdominal exam: Present: normal bowel sounds, soft, no peritoneal signs. Absent: distended, hepatomegaly, tenderness - Extremities Exam Extremities exam: Present: normal capillary refill, normal inspection, warm, radial pulses palpable and symmetrical. Absent: calf tenderness, cyanotic, pedal edema, tenderness - Neurological Exam Neurological exam: Present: alert, oriented X3, no focal deficits. Absent: facial droop, speech deficit - Skin Skin exam: Present: dry, intact, normal color, warm. Absent: rash - Patient Status Disposition: Home, Self-Care Condition: Good Functional capacity at discharge: independent ambulation Overall status at discharge: patient is back to baseline - Discharge Instructions Instructions: Ibuprofen (By mouth), Laxative, Stool Softeners (By mouth), Ondansetron (By mouth), Oxycodone/Aspirin (By mouth) Follow Up With: Caprice Sethi CNP [Advanced Practice Nurse] - 09/03/17 1:45 pm [facility],PCP [Primary Care Provider] - Additional Instructions: - No pushing, pulling, or lifting greater than 15 lbs for 2 weeks - You may shower beginning today, but no baths soaking or swimming for 2 weeks - You may resume driving when you are off narcotics and are safe to react in a car - Take ibuprofen every 8 hours for discomfort. if this does not relieve your discomfit, you may take the as needed Percocet. Take narcotics as directed. Do not take more narcotics than directed and do not share your narcotics with any other person. Do not drink alcohol while on narcotics. - Take stool softener (Colace) or a water based laxative ( Miralax) while taking narcotics - Report any fevers greater than 100.5 degrees F, increased abdominal discomfort , drainage that looks like puss, increased redness or pain at the surgical site , or any vomiting. - Report any pain in the calves, shortness of breath, or rapid heart beat. follow in two weeks at clinic with Caprice Sethi CNP 09/03/2017 at 1:45 pm Medications: -oxycodone/acetaminpohen 5/325 mg 1 tab Q6 hours PRN for breakthrough pain #28 - ibuprofen 800 mg PO Q8 hours #42 - Colace 100 mg BID (take while on narcotics; may hole for loose stool) #30 -Zofran ODT 4 mg Q6 hours PRN for nausea #15 - Diet and Activity Activity: increase activity as tolerated Diet: advance to your usual diet - VTE Documentation of Mechanical Device: Intermittent pneumatic compression device
--- NOTE | 2017-08-19 15:39 | Electrocardiograph Report ---
[address] [place] [address] Test Date: 2017-08-16 Pat Name: Luis Fernando Crespo Department: 113 Room: 3B Gender: M Sleever: : 1950 Requested By: Marie Junior Order Number: [id number] Reading MD: Gabino Rai Measurements Intervals [place] Rate: 143 P: VT: 0 QRS: -14 QRSD: 93 T: 10 QT: 296 QTc: 379 Interpretive Statements ATRIAL FIBRILLATION WITH RAPID VENTRICULAR RESPONSE Electronically Signed On 08-19-2017 15:37:16 EDT by Gabino Rai
--- NOTE | 2017-08-20 07:29 | Electrocardiograph Report ---
[place] [address] Test Date: 2017-08-17 Pat Name: Luis Fernando Crespo Department: 113 Room: 3B Gender: M Heel Wheeler: : 1950 Requested By: Katya Mckenzie Order Number: [id number] Reading MD: Gabino Rai Measurements Intervals [place] Rate: 78 P: NM: 0 QRS: -2 QRSD: 100 T: -7 QT: 390 QTc: 423 Interpretive Statements ATRIAL FIBRILLATION Electronically Signed On 08-20-2017 7:27:07 EDT by Gabino Rai
== END 2017-08-19 12:47 | disposition home or self-care (01) | DRG 419 ==
LOC: EMEROO 15:58 → 3BNU 15:58 → MERGE 20:39
PROVIDERS: ADMIT Internal Medicine Nephrology; ATTEND Internal Medicine Nephrology